=== PATIENT | male | born 1975 | race Caucasian/White ===

== ENCOUNTER 2019-04-11 06:07 | Emergency (ER) | payer OTHER ==
[2019-04-11] MEDS ORDERED: Albuterol/Ipratropium 3.0-0.5 MG/3 ML Neb Soln ONE (06:09)
[2019-04-11] MEDS ORDERED: Albuterol/Ipratropium 3.0-0.5 MG/3 ML Neb Soln NEB ONE (06:10)
--- NOTE | 2019-04-11 06:18 | EDM.PDOC ---
ED HPI GENERAL MEDICAL PROBLEM - General Chief Complaint: Respiratory Problem Stated Complaint: RESPIRATORY DISTRESS Time Seen by Provider: 04/11/19 06:16 Source of Information: Reports: Patient, EMS History Limitations: Reports: No Limitations - History of Present Illness INITIAL COMMENTS - FREE TEXT/NARRATIVE: HISTORY OF PRESENT ILLNESS: Patient is a 43-year-old male who presents via EMS for dyspnea and wheezing. Patient states he has had a cough for the past 2 months with wheezing. Has been using his home albuterol inhaler which was prescribed to him from an online physician 1 month ago. He was also prescribed Amoxicillin 1 month ago which he has been taking on and off. He self- discontinues the medication when he starts feeling better, states he still has 4 pills. Wheezing and dyspnea became worse this morning and he activated EMS. EMS administered Duoneb x 2, Solumedrol 125 mg IV and oxygen 2L. Dyspnea exacerbated by exertion. Patient denies any history of asthma or COPD. He is not on home oxygen. No recent steroid use. Patient is a 1 pack/day smoker. He denies any hemoptysis. No weight loss or night sweats. Denies any chest pain. No fevers or chills. No myalgias. No rash or neck stiffness. No leg pain or history of thromboembolic disease. No syncope. REVIEW OF SYSTEMS: Other than the symptoms associated with the present events, the following is reported with regard to recent health: General: (-) fever. HENT: (-) congestion. Respiratory: (+) cough. Cardiovascular: (-) chest pain. GI: (-) abdominal pain. : (-) urinary complaints. Musculoskeletal: (-) other aches or pains. Endocrine: (-) generalized weakness. Neurological: (-) localized weakness. Skin: (-) rash PAST MEDICAL HISTORY: reviewed as per nursing notes SOCIAL HISTORY: reviewed as per nursing notes, MEDICATIONS: Per nurse's note ALLERGIES: Per nurse's note, reviewed by me PHYSICAL EXAMINATION: GENERALIZED APPEARANCE: well developed, well nourished in mild distress VITAL SIGNS: Per nurse's note, reviewed by me SKIN: Warm, dry; (-) cyanosis; (-) rash. HEAD: (-) scalp swelling, (-) tenderness. EYES: (-) conjunctival pallor, (-) scleral icterus. ENMT: (-) stridor; mucous membranes moist. NECK: (-) tenderness, (-) stiffness, CHEST AND RESPIRATORY: (-) rales, (-) rhonchi, (+) bilateral expiratory wheezes; mild tachypnea. breath sounds equal bilaterally. HEART AND CARDIOVASCULAR: tachycardic, regular rhythm (-) murmur, (-) gallop. ABDOMEN AND GI: Soft; (-) tenderness, (-) guarding, (-) rebound, (-) palpable masses, EXTREMITIES: (-) deformity, (-) edema. NEURO AND PSYCH: Alert. Cranial nerves grossly intact; strength symmetric. gait steady DIAGNOSTICS: EKG:st at 103 bpm. nml axis. qs inferiorly. no st elevation. CXR: no acute or significant findings as read by radiologist Blood cultures x 2 ordered and pending EMERGENCY DEPARTMENT COURSE AND TREATMENT: Patient's condition remained stable during Emergency Department evaluation. Based on my history, physical exam, and diagnostic evaluation, the patient has symptoms consistent with an acute bronchitis with wheezing vs undiagnosed asthma/COPD exacerbation. On re-exam there was a normal respiratory pattern and lung camejo were clear on repeat auscultation. The patient appeared to be in no distress, appeared well-hydrated and was ambulating in the ED without difficulty. Subjectively, the patient feels better and is requesting discharge. Discharge precautions were given with instructions to return if difficulty breathing, not tolerating oral food or fluids, any respiratory distress, or new symptoms. I encouraged follow-up with the primary care physician or return here for repeat exam in 24-48 hours. As patient has history of smoking, will start on antibiotics. PLAN AND FOLLOW-UP: Patient received written and verbal instructions regarding this condition. Return to ED immediately with any new or worsening symptoms. Follow up to be arranged by patient with pcp in 1-2 days for further evaluation. Given discharge precautions. Patient expressed verbal understanding. headache Pain Score (Numeric/FACES): 4 - Related Data Allergies Allergy/AdvReac Type Severity Reaction Status Date / Time No Known Allergies Allergy Verified 04/11/19 06:09 Home Meds: Home Meds Amoxicillin 500 mg PO BID 04/11/19 [History] Azithromycin [Zithromax] 250 mg PO DAILY 5 Days #6 tab 04/11/19 [Rx] Non-Formulary Medication [NF Drug] 0 each 04/11/19 [History] predniSONE [Prednisone] 50 mg PO DAILY #5 tablet 04/11/19 [Rx] ED ROS GENERAL - Review of Systems Review Of Systems: See Below (see dictation) ED EXAM, GENERAL - Physical Exam Exam: See Below (see dictation) Course - Vital Signs Last Recorded V/S: Last Vital Signs Temp 97.2 F 04/11/19 07:07 Pulse 79 04/11/19 07:07 Resp 24 H 04/11/19 06:16 BP 130/78 04/11/19 07:07 Pulse Ox 95 04/11/19 07:07 - Orders/Labs/Meds Orders: Active Orders 24 hr Category Date Time Status EKG Documentation Completion [RC] STAT Care 04/11/19 06:10 Active RT Aerosol Therapy [RC] ASDIRECTED Care 04/11/19 06:11 Active Vital Signs [RC] PER UNIT ROUTINE Care 04/11/19 06:59 Active CULTURE BLOOD [BC] Stat Lab 04/11/19 06:13 Received CULTURE BLOOD [BC] Stat Lab 04/11/19 06:34 Results Blood Culture x2 Reflex Set [OM.PC] Stat Oth 04/11/19 06:10 Ordered Labs: Laboratory Tests 04/11/19 04/11/19 04/11/19 Range/Units 06:00 06:00 06:10 WBC 14.64 H (4.0-11.0) K/uL RBC 4.63 (4.50-5.90) M/uL Hgb 15.2 (13.0-17.0) g/dL Hct 44.6 (38.0-50.0) % MCV 96.3 (80.0-98.0) fL MCH 32.8 H (27.0-32.0) pg MCHC 34.1 (31.0-37.0) g/dL RDW Std Deviation 48.4 (28.0-62.0) fl RDW Coeff of Rodolfo 14 (11.0-15.0) % Plt Count 337 (150-400) K/uL MPV 9.40 (7.40-12.00) fL Neut % (Auto) 59.6 (48.0-80.0) % Lymph % (Auto) 21.4 (16.0-40.0) % [place] % (Auto) 8.5 (0.0-15.0) % Eos % (Auto) 9.3 H (0.0-7.0) % Baso % (Auto) 1.2 (0.0-1.5) % Neut # (Auto) 8.7 H (1.4-5.7) K/uL Lymph # (Auto) 3.1 H (0.6-2.4) K/uL [place] # (Auto) 1.2 H (0.0-0.8) K/uL Eos # (Auto) 1.4 H (0.0-0.7) K/uL Baso # (Auto) 0.2 H (0.0-0.1) K/uL Nucleated RBC % 0.0 /100WBC Nucleated RBCs # 0 K/uL Lactate 1.5 (0.20-2.00) mmol/L Sodium (136-148) mmol/L Potassium (3.5-5.1) mmol/L Chloride (98-107) mmol/L Carbon Dioxide (21.0-32.0) mmol/L BUN (7.0-18.0) mg/dL Creatinine (0.8-1.3) mg/dL Est Cr Clr Drug Dosing mL/min Estimated GFR (MDRD) ml/min Glucose (74-106) mg/dL Calcium (8.5-10.1) mg/dL Total Bilirubin (0.2-1.0) mg/dL AST (15-37) IU/L ALT (14-63) IU/L Alkaline Phosphatase (46-116) U/L Troponin I < 0.050 (0.000-0.056) ng/mL Total Protein (6.4-8.2) g/dL Albumin (3.4-5.0) g/dL Globulin (2.6-4.0) g/dL Albumin/Globulin Ratio (0.9-1.6) 04/11/19 Range/Units 06:10 WBC (4.0-11.0) K/uL RBC (4.50-5.90) M/uL Hgb (13.0-17.0) g/dL Hct (38.0-50.0) % MCV (80.0-98.0) fL MCH (27.0-32.0) pg MCHC (31.0-37.0) g/dL RDW Std Deviation (28.0-62.0) fl RDW Coeff of Rodolfo (11.0-15.0) % Plt Count (150-400) K/uL MPV (7.40-12.00) fL Neut % (Auto) (48.0-80.0) % Lymph % (Auto) (16.0-40.0) % [place] % (Auto) (0.0-15.0) % Eos % (Auto) (0.0-7.0) % Baso % (Auto) (0.0-1.5) % Neut # (Auto) (1.4-5.7) K/uL Lymph # (Auto) (0.6-2.4) K/uL [place] # (Auto) (0.0-0.8) K/uL Eos # (Auto) (0.0-0.7) K/uL Baso # (Auto) (0.0-0.1) K/uL Nucleated RBC % /100WBC Nucleated RBCs # K/uL Lactate (0.20-2.00) mmol/L Sodium 142 (136-148) mmol/L Potassium 4.2 (3.5-5.1) mmol/L Chloride 106 (98-107) mmol/L Carbon Dioxide 28.5 (21.0-32.0) mmol/L BUN 16 (7.0-18.0) mg/dL Creatinine 1.1 (0.8-1.3) mg/dL Est Cr Clr Drug Dosing 76.91 mL/min Estimated GFR (MDRD) > 60.0 ml/min Glucose 108 H (74-106) mg/dL Calcium 8.8 (8.5-10.1) mg/dL Total Bilirubin 0.5 (0.2-1.0) mg/dL AST 23 (15-37) IU/L ALT 41 (14-63) IU/L Alkaline Phosphatase 98 (46-116) U/L Troponin I (0.000-0.056) ng/mL Total Protein 7.8 (6.4-8.2) g/dL Albumin 3.9 (3.4-5.0) g/dL Globulin 3.9 (2.6-4.0) g/dL Albumin/Globulin Ratio 1.0 (0.9-1.6) Meds: Medications Discontinued Medications Generic Name Dose Route Start Last Admin Trade Name Ankit PRN Reason Stop Dose Admin Albuterol/Ipratropium Confirm 04/11/19 06:09 04/11/19 06:21 Duoneb 3.0-0.5 Mg/3 Ml Administered 04/11/19 06:10 3 ml Dose Administration 3 ml .ROUTE .STK-MED ONE Albuterol/Ipratropium 3 ml 04/11/19 06:10 04/11/19 06:22 Duoneb 3.0-0.5 Mg/3 Ml NEB 04/11/19 06:11 Not Given ONETIME ONE Ibuprofen 600 mg 04/11/19 06:39 04/11/19 06:45 Motrin PO 04/11/19 06:40 600 mg ONETIME ONE Administration Departure - Departure Time of Disposition: 07:00 Disposition: Home, Self-Care 01 Condition: Good Clinical Impression: Bronchitis, Smoking addiction, Wheezing - Discharge Information *PRESCRIPTION DRUG MONITORING PROGRAM REVIEWED*: Not Applicable *COPY OF PRESCRIPTION DRUG MONITORING REPORT IN PATIENT NIA: Not Applicable Prescriptions: Azithromycin [Zithromax] 250 mg PO DAILY 5 Days #6 tab predniSONE [Prednisone] 50 mg PO DAILY #5 tablet Instructions: Shortness of Breath, Adult, [id number], Smoking Tobacco Information, Adult, Cough, Adult, [id number], Acute Bronchitis, Adult, Easy-to -Read Forms: ED Department Discharge Additional Instructions: The following information is given to patients seen in the emergency department who are being discharged to home. This information is to outline your options for follow-up care. We provide all patients seen in our emergency department with a follow-up referral. The need for follow-up, as well as the timing and circumstances, are variable depending upon the specifics of your emergency department visit. If you don't have a primary care physician on staff, we will provide you with a referral. We always advise you to contact your personal physician following an emergency department visit to inform them of the circumstance of the visit and for follow-up with them and/or the need for any referrals to a consulting specialist. The emergency department will also refer you to a specialist when appropriate. This referral assures that you have the opportunity for follow-up care with a specialist. All of these measure are taken in an effort to provide you with optimal care, which includes your follow-up. Under all circumstances we always encourage you to contact your private physician who remains a resource for coordinating your care. When calling for follow-up care, please make the office aware that this follow-up is from your recent emergency room visit. If for any reason you are refused follow-up, please contact the [facility] Emergency Department at and asked to speak to the emergency department charge nurse. Sepsis Event Note - Focused Exam Vital Signs: Vital Signs Temp Pulse Resp BP Pulse Ox 04/11/19 07:07 97.2 F 79 130/78 95 04/11/19 06:16 96.7 F 118 H 24 H 184/127 H 92 L Date Exam was Performed: 04/11/19 Time Exam was Performed: 07:10 - My Orders Last 24 Hours: My Active Orders 04/11/19 06:10 EKG Documentation Completion [RC] STAT Blood Culture x2 Reflex Set [OM.PC] Stat 04/11/19 06:11 RT Aerosol Therapy [RC] ASDIRECTED 04/11/19 06:13 CULTURE BLOOD [BC] Stat 04/11/19 06:34 CULTURE BLOOD [BC] Stat 04/11/19 06:59 Vital Signs [RC] PER UNIT ROUTINE - Assessment/Plan Last 24 Hours: My Active Orders 04/11/19 06:10 EKG Documentation Completion [RC] STAT Blood Culture x2 Reflex Set [OM.PC] Stat 04/11/19 06:11 RT Aerosol Therapy [RC] ASDIRECTED 04/11/19 06:13 CULTURE BLOOD [BC] Stat 04/11/19 06:34 CULTURE BLOOD [BC] Stat 04/11/19 06:59 Vital Signs [RC] PER UNIT ROUTINE
[2019-04-11] MEDS ORDERED: Ibuprofen 600 MG Tab PO ONE (06:39)
[2019-04-11 06:46] LABS: BLOOD UREA NITROGEN,BUN 16 mg/dL (7.0-18.0); CARBON DIOXIDE,CO2 28.5 mmol/L (21.0-32.0); CHLORIDE,CL 106 mmol/L (98-107); GLUCOSE RANDOM 108 mg/dL (74-106); POTASSIUM,K 4.2 mmol/L (3.5-5.1); SODIUM,NA 142 mmol/L (136-148)
--- NOTE | 2019-04-11 06:47 | CR ---
INDICATION: Dyspnea TECHNIQUE: Chest 1 view COMPARISON: None FINDINGS: Cardiovascular and mediastinum: Heart size and vasculature are normal in caliber and appearance. Lungs and pleural spaces: Lungs are clear. No sign of infiltrate or mass. No sign of pleural effusion. No pneumothorax. Bones and soft tissues: No significant findings. IMPRESSION: No acute or significant findings. Dictated by Alli Hammer MD @ Apr 11 2019 6:45AM Signed by Dr. Alli Hammer @ Apr 11 2019 6:46AM
== END 2019-04-11 07:40 | disposition home or self-care (01) ==
LOC: MW.ED 06:07
DX: J40 Bronchitis, not specified as acute or chronic (principal); F17.210 Nicotine dependence, cigarettes, uncomplicated
CPT/HCPCS: 36415; 71045; 80053; 83605; 84484; 85025; 87040; 87804; 93005; 94640; 99285; A9270; J7620-GY